=== PATIENT | female | born 2005 | race Caucasian/White ===

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

== ENCOUNTER 2023-01-09 08:15 | Outpatient (CLI) | payer MEDICAID, SELFPAY ==
--- NOTE | 2023-01-09 08:27 | US_ITS ---
WS: [id number] ULTRASOUND OB FOCUSED HISTORY: Reevaluate brain and heart. COMPARISON: 12/17/2022 and 11/16/2022 Single intrauterine gestation in cephalic position. Normal amount of amniotic fluid. Cervix is closed at 3.9 cm. Placenta fundal and extends anterior to posterior. Placenta grade 1. heart rate at 147 BPM. Intracranial structures appear normal. Normal appearance of the cisterna magna and the cerebellum. No hydrocephalus. Reevaluation of the heart remains limited due to position of the fetus. The LEFT ventricular ou tflow tract is normal. The RIGHT ventricular outflow tract also appears normal although the optimal p ositioning was not obtained. Normal size of the aorta and pulmonary artery. Four-chamber heart remain s limited due to position of the fetus. Cine loop appears appropriate. Valve plane is normal. Size of the chambers and axis normal. US/US OB limited [id number] IMPRESSION: 1. Reevaluation of intracranial structures and heart appears normal. 2. Normal amniotic fluid.
== END 2023-01-09 08:16 | disposition home or self-care (01) ==
PROVIDERS: PCP Family Medicine; Visit Provider Family Medicine
DX: Z34.02 Encounter for supervision of normal first pregnancy, second trimester (principal)
CPT/HCPCS: 76815

== ENCOUNTER 2023-05-08 14:35 | Outpatient (CLI) | payer BC, MEDICAID, SELFPAY ==
[2023-05-08 14:49] VITALS: BP 116/79; PULSE 87
[2023-05-08 14:58] VITALS: TEMP 36.3; BMI 24.0
[2023-05-08 15:05] VITALS: BP 115/70; PULSE 94
[2023-05-08 15:19] VITALS: BP 112/67; PULSE 83
[2023-05-08 15:48] VITALS: BP 112/67; PULSE 83; RESP 17; TEMP 36.3
== END 2023-05-08 15:30 | disposition home or self-care (01) ==
LOC: OPOB 14:37 → OBGYN 14:38
PROVIDERS: PCP Family Medicine; Visit Provider Family Medicine
DX: O36.8190 Decreased fetal movements, unspecified trimester, not applicable or unspecified (principal); Z3A.00 Weeks of gestation of pregnancy not specified
CPT/HCPCS: 59025; 99211

== ENCOUNTER 2023-05-25 07:47 | Inpatient (IN) | payer MEDICAID, SELFPAY ==
[2023-05-24] VITALS (13 sets, daily range): BP systolic 116–137; BP diastolic 76–94; PULSE 78–114; TEMP 36.1–36.6; BMI 24.6
[2023-05-24 18:45] LABS: Basophils % 0.2 %; Eosinophils % 0.1 %; Hematocrit 32.7 % (36-47); Lymphocytes % 12.7 %; Mean Corpuscular Volume 81.8 fl (85-98); Mean Platelet Volume 11.6 fL (7.4-10.4); Monocytes # 1.4 10^3/uL (0.2-0.9); Neutrophils # 11.67 10^3/uL (1.8-8.0); Neutrophils % 75.4 %; Nucleated Red Blood Cells % 0 %; Platelet Count 149 10^3/cmm (157-399); Red Cell Distribution Width 14.3 % (12.1-15.1); White Blood Count 15.47 10^3/uL (4.5-13.0)
--- NOTE | 2023-05-24 19:30 | P.HP_ITS ---
Providers/Chief Complaint Primary Care Provider: Violeta Johnson DO Chief Complaint: Leaking Fluid HPI PRECISION FILER HAND History of Present Illness Yamilet Lewis is a 17 year old female at 40w4d by 13wk US not c/w unsure LMP with PMHx depression presenting for leaking of fluid starting at approx 3:30pm. Reports increasing contractions since that time as well. Denies vaginal bleeding. Good movement. care was good and starting in the first trimester. labs remarkable for asymptomatic bacteriuria with follow-up urine culture normal. 3rd trimester CBC with anemia- tx with oral iron. Previously incomplete anatomy ultrasound?she has had follow-up US with MFM and was normal Present Details : 1 Para: 0 Labs Blood type OB HPI: O (+) positive Rubella: Immune RPR: Negative GBS: Negative HBsAG: Negative Other Lab Information: HIV negative Hep C ab negative UCx with Klebsiella- treated with repeat negative UCx Initial H/H 14.2/42.1 1 hr GTT failed 188 3hr GTT passed 87,146,114,99 3rd trimester H/H 10.4/29.5 Review of Systems Const: Denies: fever(s) or chills Card: Denies: chest pain or palpitations Resp: Denies: dyspnea or productive cough Medications/Allergies Home Medications Medication Instructions Recorded Confirmed Last Taken Type 05/08/23 05/07/23 09:00 History Allergies Allergy/AdvReac Type Severity Reaction Status Date / Time Penicillins Allergy ALGY-Hives Verified 05/05/22 17:21 History History History 1 Term 0 0 Miscarriages/Ectopic 0 Living Children 0 Vitals/I&O/Wt Last Vital Signs Temp 97.9 F 05/24/23 19:35 Pulse 99 05/24/23 20:33 BP 119/85 05/24/23 20:33 O2 Del Method Room Air 05/24/23 17:09 Weight last 48 hrs Weight 126 lb Physical Exam Const: COMMON NORMALS: no acute distress, healthy appearing and alert Resp: COMMON NORMALS: normal respiratory effort and clear to auscultation bilaterally Cardio: COMMON NORMALS: regular rate, regular rhythm, S1 normal heart sound present, S2 normal heart sound present and No murmurs present (Cardio) : OTHER: gravid and fundus appropriate for gestational age SVE on admission /-3 per RN, SVE 3/85/-3 on repeat approx 7:30pm Extremity: NARRATIVE EXTREMITY EXAM: No LE edema Data 05/24/23 18:30 Results Labs OB ([facility]): Obstetrics US 01/09/23 Blood Type O Positive 05/24/23 Antibody Screen Negative 05/24/23 Hct 32.7 % (36-47) L 05/24/23 Hgb 10.80 g/dL (12.4-14.8) L 05/24/23 Rho(D) Type Positive 05/24/23 Plt Count 149 10^3/cmm (157-399) L 05/24/23 A&P Assessment and plan (1) Spontaneous rupture of amniotic membranes: (2) Term : Plan 17yo at 40w4d admitted for labor with SROM. Category 1 FHT. Routine CBC Expectant management- with some change after 2 hours observation- plan to start low dose pitocin if SVE unchanged on recheck Fentanyl protocol, may have epidural when desired Attestations Medical Necessity Statement*: Yamilet [place]'s hospital stay will require greater than 2 midnights for routine labor and delivery and care. Coding Level of Care Code Acute Code for Chg Fwd Diagnoses Spontaneous rupture of amniotic membranes Term Z34.90
[2023-05-24] MEDS: lactated ringers 1,000 ML 999 ML IV (23:00)
[2023-05-25] VITALS (88 sets, daily range): BP systolic 96–174; BP diastolic 52–116; PULSE 64–144; RESP 14–20; TEMP 36.8–39.5; O2SAT 98–100
[2023-05-25] MEDS: lactated ringers 1,000 ML 999 ML IV (00:01)
--- NOTE | 2023-05-25 00:03 | ANES.PREANE2 ---
Pre-Anesthetic Assessment Height/Weight: Height 1.52 m Weight 57.153 kg Temp Pulse BP O2 Del Method 97.5 F L 78 137/76 Room Air 05/24/23 23:44 05/24/23 23:48 05/24/23 23:48 05/24/23 17:09 Preop Diagnosis: labor epidural Familial anesthetic complications: none Was Beta Chalino taken within 24 hours: N/A Was Clonidine taken within 24 hours: N/A Last Intake: 23:00 Social No alcohol and No tobacco Exam alert, oriented x 3, clear to auscultation bilaterally and regular rate & rhythm Airway Submandibular: within normal limits Cervical ROM: within normal limits Mallampati: Class I Dentition: full Pulmonary None reported CV/HEM None reported None reported Hepatic None reported GI None reported Metabolic None reported Musc/skel None reported Neuropsych Anxiety and Depression Anesthetic Plan ASA status: 2 Anesthesia: Regional (specify below) (epidural) Risk of > 500 ml blood loss (7ml/kg in children): No Medications/Allergies Home Medications Medication Instructions Recorded Confirmed Last Taken Type 05/08/23 05/07/23 09:00 History Allergies Allergy/AdvReac Type Severity Reaction Status Date / Time Penicillins Allergy ALGY-Hives Verified 05/05/22 17:21 Current Medications Generic Name Dose Route Start Last Admin Trade Name Freq PRN Reason Stop Dose Admin Lactated Ringer's 1,000 mls @ 999 mls/hr 05/24/23 20:30 05/24/23 23:00 Lactated Ringers IV 999 mls/hr .Q1H1M PRN Administration See label comments PFS Anesthesia Female Reproductive History : 1 Data Anesthesia 05/24/23 18:30 Short CBC 05/24/23 Range/Units 18:30 WBC 15.47 H (4.5-13.0) 10^3/uL Hgb 10.80 L (12.4-14.8) g/dL Hct 32.7 L (36-47) % MCV 81.8 L (85-98) fl Plt Count 149 L (157-399) 10^3/cmm Neut % (Auto) 75.4 % Neut # (Auto) 11.67 H (1.8-8.0) 10^3/uL Blood Bank 05/24/23 18:30 Blood Type O Positive Rho(D) Type Positive Antibody Screen Negative Cardiac Studies: No Data to Display
[2023-05-25] MEDS: ROPivacaine syringe 100 MG/50 ML SYRINGE 10 MG EPIDURAL ×4 (00:27→08:42)
--- NOTE | 2023-05-25 00:34 | ANES.PROC ---
Anesthesia Procedures Procedure/Date: 05/25/23 Epidural: Time Out Performed: Yes Consents Signed: Procedure Consent and NPO Consent Consent: requested by attending/covering physician, from patient, risks and benefits reviewed, patient agrees to proceed and emergency procedure Lumbar Level: L3-L4 Epidural position: sitting Epidural procedure: sterile prep of area (betadine), 1% lidocaine to numb the area (3ml), 18 g needle, neg for paresthesia, test dose given, 1.5% xylocaine 1:200k epi (3ml/2ml), 0.2% Ropivacaine bolus ml (5ml), placed PCEA, no systemic response, sterile dressing applied, L.U.D. no apparent complications and 0.2% Ropiavacaine @ mls/hr (10ml/hr)
[2023-05-25] MEDS: dextrose 5%-lactated ringers 1,000 ML 125 ML IV ×2 (01:14→08:42)
[2023-05-25] MEDS: oxytocin 30 UNIT/500 ML BAG IV (01:30)
[2023-05-25] MEDS: ondansetron 2 mg/ML SDV 2 mL 4 MG IVP (07:39)
[2023-05-25] MEDS: acetaminophen 325 mg Tablet 650 MG PO (10:20)
[2023-05-25] MEDS: miSOPROStol 200 mcg Tablet 800 MCG PR (11:08)
--- NOTE | 2023-05-25 11:42 | PM.DELIVERY ---
Delivery Note: Date of delivery: May 25, 2023 Pre-delivery diagnoses: Spontaneous rupture of membranes Term Post-delivery diagnoses: Delivery of term viable female Procedure: Spontaneous Vaginal Delivery Delivering Physician: Violeta Johnson DO Estimated blood loss (mL): 300 Pre-Delivery Course: Admitted for labor after SROM at approximately 3:30 PM on 05/24/2023. Progressed spontaneously gradually and got epidural for anesthesia. Following was started on Pitocin and progressed appropriately to complete. Noted to have intermittent tachycardia with initially elevated maternal temp at 99 ?F that increased to a Tmax of 103 approximately 30 minutes prior to delivery. Dose of gentamicin was ordered however not given prior to delivery. Delivery: Patient progressed to complete. Patient placed in lithotomy position. Patient pushed with adequate effort. Head delivered in PRAVEENA position, no nuchal cord was present. Shoulders and rest of body delivered without difficulty with epidural anesthesia. Mouth and nares bulb suctioned. Infant placed on maternal abdomen. Cord clamped and cut after 1 minute delay. Placenta spontaneously delivered and intact. Pitocin started. Fundus was noted to be to be firm with fundal massage however with intermittent steady trickle bleeding. Lower uterine segment was swept free of clots and given 1 g of tranexamic acid. Following fundus was noted to be firm with decrease in bleeding. The vagina and cervix were inspected and bilateral first-degree vaginal sulcus lacerations were noted. Repaired bilaterally with 3-0 Vicryl. Following repair noted to have a steady trickle of bleeding and given 800 mcg Cytotec per rectum. Bleeding noticed to improve and fundus was again noted to be firm. Female born at 10:47 am on 05/25/23 with 8/9 weighing 6 pounds 8 ounces and measuring 20.5 in length Placenta noted to be intact with centrally inserted umbilical cord three-vessel cord. Complications: Maternal none Infant tachycardia History History History 1 Term 1 0 Miscarriages/Ectopic 0 Living Children 1 Coding Level of Care Code Acute Code for Chg Fwd Diagnoses
[2023-05-25] MEDS: benzocaine-menthol 78 gm Canister 1 SPRAY TOPICAL (13:31)
--- NOTE | 2023-05-25 13:45 | PC.NURSE ---
Pt assisted up to bathroom. Beatriz care education provided and performed by pt. Pad/gown changed. Dermaplast used. Bed linens changed. Pt assisted back into bed, fresh ice pack to perineum.
--- NOTE | 2023-05-25 14:36 | PC.NURSE ---
Pt has PO clindamycin ordered, along with other PO medications. Pt states she is not able to swallow pills. Options discussed with pt, she opted to crush pills into pudding. Pt was able to take both medications this way, but then instantly threw up all of the pudding and water. Dr Johnson was called and orders to hold antibiotics and continue to monitor vitals. She ordered toradol 15mg IVP x1 dose now. She will come by and see pt this evening.
[2023-05-25] MEDS: ketorolac 30 mg/mL INJ 15 MG IVP (14:43)
--- NOTE | 2023-05-25 16:14 | ANE.PACU2 ---
Inpatient post-anesthesia follow up: Airway intact: Yes Vital signs: Temperature 98.5 F Pulse Rate 69 Respiratory Rate 14 Blood Pressure 111/68 Pulse Oximetry 98 Oxygen Delivery Me thod Room Air Oxygen Flow Rate Fraction of Inspir ed Oxygen Hydration adequate: Yes Nausea and vomiting: No Pain level: 2 Mental status: Baseline
--- NOTE | 2023-05-25 16:15 | PM.MISC ---
Miscellaneous Note Purpose of Documentation: Anesthesia Epidural Start/stop Note: Anes start 05/25/23 0001 Anes stop 05/25/23 1200
[2023-05-25] MEDS: docusate sodium 100 mg Capsule PO (17:51)
--- NOTE | 2023-05-25 18:49 | PC.NURSE ---
Pt up to bathroom, void well, laura care by pt. Pt then ambulated to post room. Oriented to room and call light. Dr Johnson in to talk with pt.
[2023-05-25] MEDS: ibuprofen 800 mg tablet PO (20:42)
[2023-05-26] VITALS: BP 108/65; PULSE 65; RESP 15; TEMP 36.9; O2SAT 98
[2023-05-26 03:44] VITALS: BP 104/68; PULSE 64; RESP 15; TEMP 36.9; O2SAT 98
[2023-05-26 03:51] LABS: Hematocrit 24.7 % (36-47); Mean Corpuscular HGB Conc 32.8 g/dL (30-55); Mean Corpuscular Hemoglobin 27.6 pg (27-33); Mean Platelet Volume 11.6 fL (7.4-10.4); Platelet Count 120 10^3/cmm (157-399); Red Blood Count 2.94 10^6/uL (3.85-5.65); Red Cell Distribution Width 14.5 % (12.1-15.1); White Blood Count 25.74 10^3/uL (4.5-13.0)
--- NOTE | 2023-05-26 07:24 | PM.OBGYPN ---
ANESTHESIOLOGY MEDICAL DOCTOR Subjective Subjective: Interval history: Doing well overnight. Reports she is sore but overall pain is well controlled. Vaginal bleeding about the amount of a period- no blood clots. Eating well. Normal urination. Ambulating without difficulty. and has been latching well but is falling asleep frequently. Vitals/I&O/Wt Last Vital Signs Temp 98.5 F 05/26/23 03:44 Pulse 64 05/26/23 03:44 Resp 15 05/26/23 03:44 BP 104/68 05/26/23 03:44 Pulse Ox 98 05/26/23 03:44 O2 Del Method Room Air 05/26/23 03:44 05/25/23 05/26/23 05/26/23 22:59 06:59 14:59 Intake Total 600 / 2383.500 Balance 600 / 2083.500 Weight last 48 hrs Weight 126 lb Physical Exam Const: COMMON NORMALS: no acute distress, healthy appearing and alert Resp: COMMON NORMALS: normal respiratory effort and clear to auscultation bilaterally AUSCULTATION: clear to auscultation bilaterally Cardio: COMMON NORMALS: regular rate, regular rhythm, S1 normal heart sound present, S2 normal heart sound present and No murmurs present (Cardio) RATE: regular rate RHYTHM: regular rhythm HEART SOUNDS: S1 normal heart sound present and S2 normal heart sound present : OTHER: uterine fundus firm and below the umbilicus Extremity: NARRATIVE EXTREMITY EXAM: No LE edema Neuro: SENSORIUM/ORIENTATION: Yes alert Urinary Catheter Management: Yuan: Cath Placed During This Visit: yes, but has since been removed by the nurse Reason for Continuing Indwelling Catheter: Decision to DC Catheter Urinary Catheter Date of Insertion: 05/25/23 Urinary Catheter Time of Insertion: 01:00 Date Urinary Catheter Removed: 05/25/23 Time Urinary Catheter Discontinued: 09:10 Data 05/26/23 03:40 A&P Assessment and plan (1) Spontaneous vaginal delivery: (2) Chorioamnionitis: (3) Thrombocytopenia: (4) Anemia: Plan PPD #1 s/p complicated by chorioamnionitis with Tmax 103 prior to delivery. Received 1 dose IV gentamicin and due to penicillin allergy and IV clindamycin backorder one dose oral clindamycin. She has been afebrile . PP CBC significant for elevated WBC, anemia with Hgb 8.1 down from 10.8 on admission, and platelets 120 from 149 on admission. Bleeding improving per patient- plan for repeat CBC tomorrow. On iron supplementation once daily. Encourage ambulation, regular diet. Routine vital signs. -support as needed. Attestations Medical Necessity Statement*: Yamilet [place]'s hospital stay will require greater than 2 midnights for routine labor and delivery and care. Coding Level of Care Code Acute Code for Chg Fwd Diagnoses Spontaneous vaginal delivery O80 Chorioamnionitis O41.1290 Thrombocytopenia D69.6 Anemia D64.9
[2023-05-26] MEDS: ibuprofen 800 mg tablet PO ×3 (08:48→21:55)
[2023-05-26] MEDS: ferrous sulfate EC 325 mg Tablet PO (08:48)
[2023-05-26] MEDS: docusate sodium 100 mg Capsule PO ×2 (08:48→21:55)
[2023-05-26] MEDS: prenatal vitamin Capsule 1 CAP PO (08:48)
[2023-05-26 08:55] VITALS: BP 116/77; PULSE 91; RESP 16; TEMP 36.7; O2SAT 98
[2023-05-26 15:41] VITALS: BP 102/68; PULSE 73; RESP 16; TEMP 36.6; O2SAT 97
[2023-05-26 21:54] VITALS: BP 98/63; PULSE 83; RESP 18; TEMP 36.8; O2SAT 99
[2023-05-27 04:00] VITALS: BP 107/71; PULSE 81; RESP 18; TEMP 36.6; TEMP 36.7; O2SAT 97
[2023-05-27 05:21] LABS: Basophils # 0.1 10^3/uL (0.0-0.1); Basophils % 0.4 %; Eosinophils # 0.1 10^3/uL (0.0-0.8); Eosinophils % 0.7 %; Hematocrit 24.7 % (36-47); Lymphocytes # 2.8 10^3/uL (1.5-6.5); Mean Corpuscular HGB Conc 31.2 g/dL (30-55); Mean Corpuscular Hemoglobin 26.5 pg (27-33); Mean Corpuscular Volume 84.9 fl (85-98); Mean Platelet Volume 12.2 fL (7.4-10.4); Monocytes # 1.1 10^3/uL (0.2-0.9); Monocytes % 6.9 %; Neutrophils # 11.01 10^3/uL (1.8-8.0); Neutrophils % 71.8 %; Nucleated Red Blood Cells % 0 %; Platelet Count 142 10^3/cmm (157-399); Red Blood Count 2.91 10^6/uL (3.85-5.65); Red Cell Distribution Width 14.6 % (12.1-15.1); White Blood Count 15.32 10^3/uL (4.5-13.0)
[2023-05-27] MEDS: ferrous sulfate EC 325 mg Tablet PO (09:04)
[2023-05-27] MEDS: ibuprofen 800 mg tablet PO ×2 (09:04→14:20)
[2023-05-27] MEDS: prenatal vitamin Capsule 1 CAP PO (09:04)
[2023-05-27] MEDS: docusate sodium 100 mg Capsule PO (09:04)
[2023-05-27 09:06] VITALS: BP 106/71; PULSE 78; RESP 16; TEMP 36.7; O2SAT 97
--- NOTE | 2023-05-27 12:15 | PM.OBGYDC ---
Discharge Providers BILLING ADJUDICATOR Date of Admission: 05/25/23 07:47 Date of Discharge: 05/27/23 Attending Provider at Admission: Violeta Johnson DO Attending Provider at Discharge: Violeta Johnson DO Primary Care Provider: Violeta Johnson DO Diagnoses at Discharge Discharge Diagnosis (1) Spontaneous vaginal delivery: Status: Acute (2) Thrombocytopenia: Status: Acute (3) Anemia: Status: Acute Reason for Visit Reason for Visit: Leaking Fluid Hospital Course Hospital Course Pre-Delivery Course:?? Admitted for labor after SROM at approximately 3:30 PM on 05/24/2023.? Progressed spontaneously gradually and got epidural for anesthesia.? Following was started on Pitocin and progressed appropriately to complete.? Noted to have intermittent tachycardia with initially elevated maternal temp at 99 ?F that increased to a Tmax of 103 approximately 30 minutes prior to delivery.? Dose of gentamicin was ordered however not given prior to delivery. Delivery:?? Patient progressed to complete. Patient placed in lithotomy position. Patient pushed with adequate effort. Head delivered in PRAVEENA position, no nuchal cord was present. Shoulders and rest of body delivered without difficulty with epidural anesthesia. Mouth and nares bulb suctioned.? Infant placed on maternal abdomen. Cord clamped and cut after 1 minute delay. Placenta spontaneously delivered and intact. Pitocin started. Fundus was noted to be to be firm with fundal massage however with intermittent steady trickle bleeding.? Lower uterine segment was swept free of clots and given 1 g of tranexamic acid.? Following fundus was noted to be firm with decrease in bleeding.? The vagina and cervix were inspected and bilateral first-degree vaginal sulcus lacerations were noted.? Repaired bilaterally with 3-0 Vicryl.? Following repair noted to have a steady trickle of bleeding and given 800 mcg Cytotec per rectum.? Bleeding noticed to improve and fundus was again noted to be firm. Female born at 10:47 am on 05/25/[birth year] with 8/9 weighing 6 pounds 8 ounces and measuring 20.5 in length Placenta noted to be intact with centrally inserted umbilical cord?and three-vessel cord. Sent for pathology due to maternal fever. Complications: Maternal none ? tachycardia course: Patient underwent on 05/25/23. course was uncomplicated. Following delivery patient ambulated well, tolerated a normal diet without nausea or vomiting. Pain was well controlled on PO medications, well, no leg/calf pain, no calf/leg swelling, normal urination, passing gas and normal bowel movements. Vaginal bleeding decreasing and thin lochia. labs significant for Hgb 10.8>8.1>7.7; Platelets 149>120>142 and WBC 15.47>25.74>15.32. She is restarted on iron supplemenation for anemia. She has been afebrile since delivery and remained free of s/sx of sepsis. Follow-up planned for 2 and 6 weeks . Warning signs for endometritis, pre-eclampsia, DVT/PE, mastitis were reviewed, discussed additional warning signs including increased vaginal bleeding, worsening abdominal pain. Pelvic rest and activity precautions reviewed as well. She is discharged on 05/27/23 in stable condition. Information Peripartum Data: Infant Delivery Method: Vaginal Physical Exam Const: COMMON NORMALS: no acute distress, healthy appearing and alert Resp: COMMON NORMALS: normal respiratory effort and clear to auscultation bilaterally AUSCULTATION: clear to auscultation bilaterally Cardio: COMMON NORMALS: regular rate, regular rhythm, S1 normal heart sound present, S2 normal heart sound present and No murmurs present (Cardio) RATE: regular rate RHYTHM: regular rhythm HEART SOUNDS: S1 normal heart sound present and S2 normal heart sound present : OTHER: uterine fundus firm and below the umbilicus Extremity: NARRATIVE EXTREMITY EXAM: No LE edema Neuro: SENSORIUM/ORIENTATION: Yes alert Urinary Catheter Management: Yuan: Cath Placed During This Visit: yes, but has since been removed by the nurse Reason for Continuing Indwelling Catheter: Decision to DC Catheter Urinary Catheter Date of Insertion: 05/25/23 Urinary Catheter Time of Insertion: 01:00 Date Urinary Catheter Removed: 05/25/23 Time Urinary Catheter Discontinued: 09:10 History History History 1 Term 1 0 Miscarriages/Ectopic 0 Living Children 1 Discharge Data Studies Completed and Pending Pending at discharge Category Date Time Status Pathology: Surgical [PTH] Routine Pth 05/27/23 09:14 Received Laboratory Results WBC 15.32 10^3/uL (4.5-13.0) H 05/27/23 04:39 RBC 2.91 10^6/uL (3.85-5.65) L 05/27/23 04:39 Hgb 7.70 g/dL (12.4-14.8) L 05/27/23 04:39 Hct 24.7 % (36-47) L 05/27/23 04:39 MCV 84.9 fl (85-98) L 05/27/23 04:39 MCH 26.5 pg (27-33) L 05/27/23 04:39 MCHC 31.2 g/dL (30-55) 05/27/23 04:39 RDW 14.6 % (12.1-15.1) 05/27/23 04:39 Plt Count 142 10^3/cmm (157-399) L 05/27/23 04:39 MPV 12.2 fL (7.4-10.4) H 05/27/23 04:39 Neut % (Auto) 71.8 % 05/27/23 04:39 Lymph % (Auto) 18.0 % 05/27/23 04:39 [place] % (Auto) 6.9 % 05/27/23 04:39 Eos % (Auto) 0.7 % 05/27/23 04:39 Baso % (Auto) 0.4 % 05/27/23 04:39 Neut # (Auto) 11.01 10^3/uL (1.8-8.0) H 05/27/23 04:39 Lymph # (Auto) 2.8 10^3/uL (1.5-6.5) 05/27/23 04:39 [place] # (Auto) 1.1 10^3/uL (0.2-0.9) H 05/27/23 04:39 Eos # (Auto) 0.1 10^3/uL (0.0-0.8) 05/27/23 04:39 Baso # (Auto) 0.1 10^3/uL (0.0-0.1) 05/27/23 04:39 Nucleated RBC % (auto) 0 % 05/27/23 04:39 Nucleated RBCs # 0.0 /100WBC 05/27/23 04:39 Blood Type O Positive 05/24/23 18:30 Rho(D) Type Positive 05/24/23 18:30 Antibody Screen Negative 05/24/23 18:30 Vitals Last Vital Signs Temp 98.1 F 05/27/23 09:06 Pulse 78 05/27/23 09:06 Resp 16 05/27/23 09:06 BP 106/71 05/27/23 09:06 Pulse Ox 97 05/27/23 09:06 O2 Del Method Room Air 05/27/23 09:06 Results Labs OB ([facility]): Obstetrics US 01/09/23 Blood Type O Positive 05/24/23 Antibody Screen Negative 05/24/23 Hct 24.7 % (36-47) L 05/27/23 Hgb 7.70 g/dL (12.4-14.8) L 05/27/23 Rho(D) Type Positive 05/24/23 Plt Count 142 10^3/cmm (157-399) L 05/27/23 Discharge Plan Discharge Patient Disposition: Home Condition: Stable Prescriptions: New ibuprofen 800 mg Tablet 800 mg PO TID Qty: 90 0RF docusate sodium 100 mg Capsule 100 mg PO BID Qty: 60 0RF ferrous sulfate 325 mg (65 mg iron) Tablet,Delayed Release (Dr/Ec) 325 mg PO DAILY Qty: 90 0RF -U 106.5-1 mg Capsule 1 cap PO DAILY Qty: 90 0RF Continued Discharge Orders: Discharge Order (Routine); Ordered 05/27/23 Ordered By: Violeta Johnson Referrals: Violeta Johnson DO [Primary Care Provider] - 06/11/23 2:45 pm (6 week- 07/09/23 @2:45) Discharge Diet: Regular Discharge Activity: Increase activity as tolerated Patient Instructions: Depression (DC), Bleeding (DC), Preeclampsia and Eclampsia After Delivery (GEN), Hemorrhage (DC), OB Discharge Report, OB Food/Drug Interaction Guide, OB Care at Home, Opioid Safety, OB Home Care, OB Vaginal Deliveries Activity Restrictions/Additional Instructions: Pelvic rest for 6 weeks. Follow-up at [address] Johnson at [facility]. Discharge Attestations BILLING ADJUDICATOR Time Spent in Discharge Care*: less than 30 min Coding Level of Care Code Acute Code for Chg Fwd Diagnoses Spontaneous vaginal delivery O80 Thrombocytopenia D69.6 Anemia D64.9
[2023-05-27 14:00] VITALS: BP 98/63; PULSE 81; RESP 16; TEMP 37.4; O2SAT 98
[2023-05-27 14:19] VITALS: BP 98/63; PULSE 81; RESP 16; TEMP 37.4; O2SAT 98
[2023-05-27] MEDS: flu vacc pf 2023-24 (6 mos+) 60 MCG IM (14:20)
== END 2023-05-27 14:26 | disposition home or self-care (01) | DRG 805 ==
LOC: OPOB 07:48 → OBGYN 07:48
PROVIDERS: Admitting Provider Family Medicine; PCP Family Medicine; Visit Provider Family Medicine
DX: O48.0 Post-term pregnancy (principal); O41.1230 Chorioamnionitis, third trimester, not applicable or unspecified; Z37.0 Single live birth; Z3A.40 40 weeks gestation of pregnancy; Z88.0 Allergy status to penicillin; O70.0 First degree perineal laceration during delivery; O76 Abnormality in fetal heart rate and rhythm complicating labor and delivery; O72.3 Postpartum coagulation defects; O90.81 Anemia of the puerperium; D64.9 Anemia, unspecified; D69.6 Thrombocytopenia, unspecified
CPT/HCPCS: 36415; 51702; 59409; 83986; 85025; 85027; 86850; 86900; 88307; 90471; 90686; 96374; J1580; J1885; J2405; J2590; J2795; J7120; J7121